=== PATIENT | male | born 1985 | race Caucasian/White ===

== ENCOUNTER 2025-04-09 13:44 | Emergency (ER) | payer SELFPAY ==
[2025-04-09 13:48] VITALS: BP 127/93
[2025-04-09 13:58] VITALS: BP 121/75; BMI 47.5
[2025-04-09 14:00] VITALS: BP 121/75
--- NOTE | 2025-04-09 14:05 | ED.GENMED ---
History of Present Illness
General
Chief Complaint: Chest Pain
Source: patient
Time Seen by Provider: 04/09/25 13:52
History of Present Illness
History of Present Illness:
39-year-old male presents to the emergency room complaining of shortness of breath and chest pain. Patient was sent to the emergency room from his primary care doctor's office. patient was evidently recently admitted to [facility] for
'congestive heart failure and A-fib'. When asked specific questions about this visit he states 'I do not know'. Patient is prescribed Xarelto and states he takes it once a day. He is unsure how often he is supposed to take his metoprolol or Lasix
but he takes it once a day. Patient states the chest pain that he told his primary doctor about is been present for the past 4 days. It never goes away. Nothing makes it better or worse. It does not limit his activity. Patient denies smoking.
He endorses alcohol use. He drinks about 4 or 5 'double' beers a day. Last drink was about 2 AM. He denies any fever or chills. Patient also states he is taking an antibiotic because he had an infection in his right lower extremity.
Phy Exam
Physical Exam
Physical Exam:
General: Awake, Alert, Oriented X3. No acute distress. High BMI.
Vitals: unremarkable
Head: Atraumatic
Eyes: Pupils equal, EOMI
Throat: Airway intact, no exudates
Neck: Trachea midline
Lungs: Clear and equal b/l
Heart: Regular rate, no murmurs
Abd: Soft, Nontender, No pulsatile mass
Neuro: Nonfocal
Skin: Warm, dry, no rash
Extremities: pulses equal b/l, 1+ edema
Scores
Heart Score for Chest Pain Patients
STEMI patient?: No
History: Slightly or Non-Suspicious
ECG: Nonspecific Repolarization
Age: </= 45 years
Risk Factors: 1 or 2 Risk Factors
Troponin: </= Normal Limit
Heart Score for Chest Pain Patients: 2
Heart Score Risk: 2.5% MACE over next 6 weeks
Course
Orders/Labs/Results
Orders:
Orders
04/09/25 13:48
Electrocardiogram (*1) Urgent
Reason for Study: Chest Pain
04/09/25 13:49
EKG- Treatment ONCE
04/09/25 14:05
CR Chest - 2 Views Urgent
Comment:
Reason For Exam: shortness of breath, chest pain
04/09/25 14:11
Complete Blood Count/With Diff Urgent
Comprehensive Metabolic Panel Urgent
NT-proBNP Urgent
Troponin I Urgent
Abnormal Lab Results
04/09/25
14:11
MCHC 32.9 L g/dL
(33.0-37.0)
Lymphocytes % 19.8 L %
(20.5-51.1)
Glucose 110 H mg/dl
(70-99)
04/09/25 14:11
04/09/25 14:11
Vital Signs
Initial and Last Documented VS:
Initial Vital Signs
Pulse Resp BP Pulse Ox
97 13 127/93 99
04/09/25 13:48 04/09/25 13:48 04/09/25 13:48 04/09/25 13:48
Last Documented Vital Signs
Temp Pulse Resp BP Pulse Ox
97.8 F 75 17 121/75 98
04/09/25 13:58 04/09/25 16:00 04/09/25 16:00 04/09/25 14:00 04/09/25 16:00
MDM/Problems Addressed
Differential Diagnosis Includes:
Musculoskeletal chest pain, acute coronary syndrome, GERD
MDM/Problems Addressed:
Patient sent from the [facility] er for evaluation of chest pain. Troponins unremarkable. Patient is in atrial fibrillation with a controlled rate. This was discovered during her recent hospitalization in early March at [facility]. He will
require further outpatient follow-up but there is no indication for hospitalization at this time. Discussed the patient's presentation with the family practice global marketing intern who sent the patient. She will work on medication refills. Patient given
contact information for cardiology to follow-up with as well. I discussed with the patient the fact that his significant alcohol consumption likely is contributing to his A-fib as well as his cardiomyopathy. I asked if he would like to speak to
BCANICHELLE to help with alcohol dependence. He declined.
*Radiology
Radiology exam reviewed: radiology read reviewed
*Pulse Oximetry
SaO2: 98
Oxygen Mode of Delivery: Room air
Patient hypoxic: no
*EKG
Interpreted by ED Provider?: Yes
Interpretation: abnormal
Heart Rate: 80
Rate: normal
Rhythm: a-fib
[place]: normal axis
Interval: normal interval
QRS Pattern: normal QRS
Ischemia: non-specific ST changes
*Operations Professional Interpretation
Rate: normal
Interpretation: abnormal
Rhythm: a-fib
*Critical Care Note
Total Time (30-74mins, 75-104mins- exclusive of procedures): Not Applicable
Data Reviewed
Review of Other/Old Records Reveals: Discharge Summary (We obtained a discharge summary from [facility] from his admission on 03/11)
Patient Management
Social determinants of health affecting care: Financial situation
ED Attending Note
-
Portions of this chart may have been created with voice recognition software.� Occasional wrong word or��sound alike� substitutions may have occurred due to the inherent limitations of voice recognition software.
Discharge Plan
Departure
Patient Disposition: Home (Routine Discharge)
Date of Disposition: 04/09/25
Time of Disposition: 15:39
Patient with high blood pressure during this ER visit?: No
Discharge Problem:
Chest pain, Atrial fibrillation with normal ventricular rate
Instructions: Atrial fibrillation and atrial flutter - ED discharge instructions, Chest Pain DCA Follow Up
Prescriptions:
No Action
metoprolol succinate [Toprol XL] 50 mg Tablet Extended Release 24 Hr
50 mg PO DAILY
thiamine HCl (vitamin B1) 100 mg Tablet
200 mg PO BID
spironolactone 25 mg Tablet
25 mg PO DAILY
losartan 25 mg Tablet
25 mg PO DAILY
folic acid 1 mg Tablet
1 mg PO DAILY
furosemide 20 mg Tablet
20 mg PO DAILY
Xarelto 20 mg Tablet
20 mg PO QPM
Referrals:
[facility] [Outside]
[facility] [Outside]
Dedra Nix DO [Active, Cardiology]
Activity Restrictions/Additional Instructions:
We have performed test here in the emergency room and you are not having a heart attack. You do continue to have the abnormal heart rhythm of atrial fibrillation. You are on the appropriate medications for this and you should continue taking them.
You do need to follow-up with a stenographic court reporter. I have given you the contact information for Dr. Tavarez who is part of [facility]. You should call their office and get the next available appointment. I have obtained a
discharge summary from your stay at [facility]. This reveals that your heart is not pumping as efficiently as it should. It is very important that you follow-up with a stenographic court reporter and continue taking your medications. Is also important that you
stop drinking alcohol as excessive alcohol use is very likely the cause of your heart problems.
Interventions
Interventions:
*Risk Screen - Suicide Last Done: 04/09/25 13:58
*General Assessment Last Done: 04/09/25 13:58
*Neglect/Abuse Screening Last Done: 04/09/25 13:58
*ED- Fall Risk Assessment Last Done: 04/09/25 13:58
*ED COVID-19 Vaccine History Last Done: 04/09/25 13:58
*Nursing Disposition Last Done: 04/09/25 16:07
ED- Cardiac Assessment Last Done: 04/09/25 13:58
Discharge Date and Time
Discharge Date/Time: 04/09/25 16:29
Print Language: [id number]
[2025-04-09 14:20] LABS: Hematocrit 44.4 % (39.0-52.0); Hemoglobin 14.6 g/dL (13.0-18.0); Mean Corp Hgb Conc. 32.9 g/dL (33.0-37.0); Mean Corpuscular Volume 84.7 fL (80.0-94.0); Nucleated Red Blood Cells % 0 % (-); Platelet Count 250 10^3/uL (130-400); Red Cell Dist. Width 12.8 % (11.5-14.5)
[2025-04-09 14:35] LABS: ALT (SGPT) 27 U/L (0-50); AST (SGOT) 24 U/L (17-59); Albumin 4.8 g/dl (3.5-5.0); Alkaline Phosphatase 81 U/L (38-126); Blood Urea Nitrogen 15 mg/dl (9-20); Calcium 9.7 mg/dl (8.4-10.2); Carbon Dioxide 26 mmol/L (22-30); Chloride 104 mmol/L (98-107); Estimated Creatinine Clearance > 125 ml/min; Glucose 110 mg/dl (70-99); Potassium 4.5 mmol/L (3.5-5.1); Sodium 138 mmol/L (135-145); Total Protein 7.9 g/dl (6.3-8.2); eGFR > 60.00
[2025-04-09 14:46] LABS: Troponin I < 0.012 ng/ml
== END 2025-04-09 16:29 | disposition home or self-care (01) ==
LOC: EMR 13:44
PROVIDERS: Emergency Medicine; EMERGENCY PHYSICIAN Emergency Medicine
DX: I48.91 Unspecified atrial fibrillation (principal); I50.9 Heart failure, unspecified; R07.9 Chest pain, unspecified; R60.0 Localized edema; F10.20 Alcohol dependence, uncomplicated; Z79.01 Long term (current) use of anticoagulants; Z79.899 Other long term (current) drug therapy
CPT/HCPCS: 99285; 71046; 80053; 83880; 84484; 85025; 93005